=== PATIENT | female | born 1970 ===

== ENCOUNTER 2017-01-18 12:59 | Emergency (ER) | payer MEDICARE, OTHER ==
[2017-01-18 13:00] VITALS: BMI 29.0
[2017-01-18 13:13] VITALS: RESP 18; O2SAT 98
[2017-01-18] MEDS ORDERED: Sodium Chloride 0.9% 1,000 ML IV STA (13:34)
[2017-01-18 14:05] LABS: BASO # 0.1 K/uL (0.0-0.2); BASO % 1.1 % (0.0-2.0); EOS # 0.1 K/uL (0.0-0.7); EOS % 0.9 % (0.0-4.0); LYMPH # 1.6 K/uL (1.0-4.3); MEAN CELL VOLUME 82.9 fL (81.0-99.0); MEAN CORPUSCULAR HEMOGLOBIN 26.3 pg (27.0-31.0); MEAN CORPUSCULAR HGB CONC 31.7 g/dL (33.0-37.0); MEAN PLATELET VOLUME 9.2 fL (7.2-11.7); MONO # 0.7 K/uL (0.0-0.8); MONO % 9.6 % (0.0-10.0); NRBC % 0.2 % (0.0-2.0); RED CELL DISTRIBUTION WIDTH 16.5 % (11.5-14.5); WHITE BLOOD COUNT 6.9 K/uL (4.8-10.8)
[2017-01-18] MEDS ORDERED: Sodium Chloride 0.9% 1,000 ML ONE (14:07)
[2017-01-18 14:13] LABS: CHLORIDE 99 mmol/L (98-107)
[2017-01-18 14:14] LABS: POTASSIUM 3.7 mmol/L (3.6-5.2); SODIUM 138 mmol/L (132-148)
[2017-01-18 14:16] LABS: ALB/GLOB RATIO 1.4 (1.0-2.1); ALKALINE PHOSPHATASE 50 U/L (38-126); AST/SGOT 26 U/L (14-36); BILIRUBIN,TOTAL 0.1 mg/dL (0.2-1.3); BLOOD UREA NITROGEN 14 mg/dL (7-17); CARBON DIOXIDE 25 mmol/L (22-30); GFR AFRICAN-AMERICAN > 60
[2017-01-18 14:17] LABS: ALT/SGPT 29 U/L (9-52); CALCIUM 8.9 mg/dl (8.6-10.4); GLUCOSE,RANDOM 95 mg/dL (65-105)
--- NOTE | 2017-01-18 14:34 | C.PDOC ---
History Of Present Illness 46-year-old female, PMHx includes Rheumatoid Arthritis and Lupus, presents to the emergency department with complaints of light headedness for the past month. Patient notes that she has been on her menstrual cycle for the past month. States she changes her pad 2-3 times a day, and sees clots; Patient notes she has not been evaluated by OBGYN. Denies loss of consciousness, shortness of breath or chest pain. Patient reports she has also been having fluid retention for the four past months, for which she is taking HCTZ. States she feels generally well otherwise. No other complaints at this time. Time Seen by Provider: 01/18/17 13:27 Chief Complaint (Nursing): Dizziness/Lightheaded History Per: Patient History/Exam Limitations: no limitations Onset/Duration Of Symptoms: Days Current Symptoms Are (Timing): Still Present Past Medical History Reviewed: Historical Data, Nursing Documentation, Vital Signs Vital Signs: Last Vital Signs Temp 98.6 F 01/18/17 13:12 Pulse 80 01/18/17 13:12 Resp 18 01/18/17 13:12 BP 115/78 01/18/17 13:12 Pulse Ox 98 01/18/17 14:55 - Medical History PMH: Anemia, Anxiety, Arthritis, Asthma, Back Problems, Bipolar Disorder, Depression, Gastritis, Hiatal Hernia, Rheumatoid Arthritis Surgical History: Endoscopy - [facility] Procedures ESOPHAGOGASTRODUODENOSCOPY [EGD] W/CLOSED BIOPSY (05/29/15) Family History: States: Unknown Family Hx - Social History Hx Tobacco Use: Yes Hx Alcohol Use: No Hx Substance Use: No - Immunization History Hx Tetanus Toxoid Vaccination: No Hx Influenza Vaccination: No Hx Pneumococcal Vaccination: No Review Of Systems Except As Marked, All Systems Reviewed And Found Negative. Constitutional: Negative for: Fever, Chills Respiratory: Negative for: Cough, Shortness of Breath Gastrointestinal: Negative for: Nausea, Vomiting Genitourinary: Positive for: Vaginal Bleeding Musculoskeletal: Negative for: Back Pain Neurological: Negative for: Weakness, Numbness, Headache, Dizziness Physical Exam - Physical Exam Additional Physical Exam Comments: Constitutional: No acute distress. Head: Normocephalic. Atraumatic. Eyes: PERRL. EOMI ENT: Moist mucous membranes. Neck: Supple. Cardiovascular: Regular rate. Radial pulses 2+ bilaterally. Chest: No tenderness. Respiratory: Clear to auscultation bilaterally. GI: Soft. Nontender. Nondistended. Back: No CVA tenderness. No midline tenderness. Musculoskeletal: No tenderness or swelling of extremities. Skin: No rash. Neurologic: Alert, no focal deficit. ED Course And Treatment - Laboratory Results Result Diagrams: 01/18/17 14:02 01/18/17 14:02 ECG: Interpreted By Me, Viewed By Me ECG Rhythm: Sinus Rhythm ECG Interpretation: No Acute Changes Rate From EC O2 Sat by Pulse Oximetry: 98 - Radiology CXR: Interpreted by Me, Viewed By Me CXR Interpretation: Yes: No Acute Disease Medical Decision Making Medical Decision Making: Prior Visits Notes and records from previous visits were reviewed. Patient has a Hx of similar presentation w/ same complaint. At the time, patients urine noted to have blood; Patient may be on her menstrual cycle since last visit. Will check patients HGB. Patients blood pressure and heart rate are currently normal. Plan: * Type and Screen * EKG * CMP, Lipase * CBC, PTT, PT * Chest X-Ray * Zofran, IVF * Influenza AB * UA/HCG * Reassess and Disposition Labs unremarkable. Hb stable after a reported month of vaginal bleeding. Will discharge patient, copy of labs provided for follow up with PMD and OBGYN. Return to ER for near syncope, dyspnea, vomiting, or any other problem. Disposition - Disposition Referrals: Shaik Andrade MD [Staff Provider] - Disposition: HOME/ ROUTINE Disposition Time: 14:55 Condition: STABLE Additional Instructions: Follow up with your primary care physician and an OBGYN. Instructions: Dysfunctional Uterine Bleeding (ED) Forms: Work Excuse - Clinical Impression Clinical Impression: Lightheadedness, Dysfunctional uterine bleeding - Scribe Statement The provider has reviewed the documentation as recorded by the Waldoibzachariah Farr All medical record entries made by the Waldoibzachariah were at my direction and personally dictated by me. I have reviewed the chart and agree that the record accurately reflects my personal performance of the history, physical exam, medical decision making, and the department course for this patient. I have also personally directed, reviewed, and agree with the discharge instructions and disposition.
[2017-01-18 14:35] LABS: RBC URINE < 1 /hpf (0-3); URINE BILIRUBIN NEGATIVE (NEGATIVE); URINE BLOOD NEGATIVE (NEGATIVE); URINE COLOR Straw (YELLOW); URINE GLUCOSE (UA) NORMAL (Normal); URINE KETONE NEGATIVE (NEGATIVE); URINE LEUKOCYTE ESTERASE NEG Leu/uL (Negative); URINE PROTEIN NEGATIVE (NEGATIVE); URINE UROBILINOGEN NORMAL mg/dL (0.2-1.0)
--- NOTE | 2017-01-18 14:37 | RAD ---
HISTORY: lightheaded COMPARISON: Comparison is made to the previous study dated 10/22/2016 FINDINGS: LUNGS: No active pulmonary disease. PLEURA: No significant pleural effusion identified, no pneumothorax apparent. CARDIOVASCULAR: Normal. OSSEOUS STRUCTURES: No significant abnormalities. VISUALIZED UPPER ABDOMEN: Normal. OTHER FINDINGS: None. IMPRESSION: No active disease.
[2017-01-18 14:56] VITALS: BP 130/88; PULSE 75
[2017-01-18 15:18] VITALS: TEMP 97.8
--- NOTE | 2017-01-19 23:10 | CARD ---
APPROVED REPORT EKG Measurement Heart [id number] <Conclusion> Normal sinus rhythm Normal ECG
== END 2017-01-18 15:19 | disposition home or self-care (01) ==
LOC: C.ER 12:59
DX: N93.8 Other specified abnormal uterine and vaginal bleeding (principal); R42 Dizziness and giddiness
CPT/HCPCS: 71010; 80053; 81001; 83690; 84703; 85025; 85610; 85730; 86850; 86900; 87804; 93005; 96361; 96374; 99285; J2405; J7040

== ENCOUNTER 2017-03-03 11:59 | Emergency (ER) | payer MEDICARE, OTHER ==
[2017-03-03 12:01] VITALS: BMI 29.0
[2017-03-03 12:10] VITALS: TEMP 98.7; O2SAT 100
[2017-03-03] MEDS ORDERED: Sodium Chloride 0.9% 1,000 ML IV ONE (12:36)
[2017-03-03] MEDS ORDERED: Sodium Chloride 0.9% 1,000 ML ONE (13:02)
--- NOTE | 2017-03-03 13:15 | C.PDOC ---
History Of Present Illness 46 y/o female, with PMHx of lupus and anemia, presents to ED with complaints of generalized weakness, feeling tired, and decreased appetite for 2 days. Patient states she is also saddened by recent news provided by her doctor regarding the condition of her liver. Patient is unsure of the diagnosis but was advised to follow up with GI. Patient also complains of associated nausea but denies vomiting. Otherwise, denies fever, chills, abdominal pain, diarrhea, urinary symptoms, or other complaints. Time Seen by Provider: 03/03/17 12:27 Chief Complaint (Nursing): Dizziness/Lightheaded History Per: Patient History/Exam Limitations: no limitations Onset/Duration Of Symptoms: Days Current Symptoms Are (Timing): Still Present Reports Recently: Treated By A Physician Recent travel outside of the [place]: No Past Medical History Reviewed: Historical Data, Nursing Documentation, Vital Signs Vital Signs: Last Vital Signs Temp 98.7 F 03/03/17 12:07 Pulse 68 03/03/17 14:04 Resp 18 03/03/17 14:04 BP 117/73 03/03/17 14:04 Pulse Ox 100 03/03/17 14:04 - Medical History PMH: Anemia, Anxiety, Arthritis, Asthma, Back Problems, Bipolar Disorder, Depression, Gastritis, Hiatal Hernia, Rheumatoid Arthritis Surgical History: Endoscopy - [facility] Procedures ESOPHAGOGASTRODUODENOSCOPY [EGD] W/CLOSED BIOPSY (05/29/15) Family History: States: Unknown Family Hx - Social History Hx Tobacco Use: Yes Hx Alcohol Use: No Hx Substance Use: No - Immunization History Hx Tetanus Toxoid Vaccination: No Hx Influenza Vaccination: No Hx Pneumococcal Vaccination: No Review Of Systems Except As Marked, All Systems Reviewed And Found Negative. Constitutional: Negative for: Fever, Chills ENT: Negative for: Throat Pain Cardiovascular: Negative for: Chest Pain Respiratory: Negative for: Cough, Shortness of Breath, Wheezing Gastrointestinal: Positive for: Nausea. Negative for: Vomiting, Abdominal Pain , Diarrhea Skin: Negative for: Rash Neurological: Negative for: Dizziness Physical Exam - Physical Exam Appears: Non-toxic, Other (tearful, anxious) Skin: Warm, Dry Head: Atraumatic, Normacephalic Oral Mucosa: Moist Throat: Normal, No Erythema, No Exudate Neck: Supple Chest: Symmetrical Cardiovascular: Rhythm Regular, No Murmur Respiratory: Normal Breath Sounds, No Rales, No Rhonchi, No Wheezing Gastrointestinal/Abdominal: Soft, No Tenderness, No Guarding, No Rebound Back: Normal Inspection Extremity: Normal ROM, No Pedal Edema, Capillary Refill (< 2 sec. ) Extremity: Bilateral: Normal Color And Temperature Neurological/Psych: Oriented x3, Normal Speech, Normal Cognition ED Course And Treatment - Laboratory Results Result Diagrams: 03/03/17 13:05 03/03/17 13:05 Lab Interpretation: No Acute Changes O2 Sat by Pulse Oximetry: 100 (RA) Pulse Ox Interpretation: Normal Medical Decision Making Medical Decision Making: Plan: * EKG * Labs * IVFs, Zofran * Reassess Progress: Labs reviewed. H/H WNL, no leukocytosis Patient observed to be talking on phone in no acute distress Upon reevaluation patient resting comfortably and reports feeling better. Explain lab results and LFT WNL and state normal Hgb. Advise patient to follow up with PMD for further evaluation. Recommend fluids and rest Disposition Counseled Patient/Family Regarding: Diagnosis, Need For Followup - Disposition Referrals: Shaik Andrade MD [Staff Provider] - Ras Krishnamurthy MD [Staff Provider] - Disposition: HOME/ ROUTINE Disposition Time: 13:48 Condition: STABLE Additional Instructions: [facility] normales Por favor, siga con el primario y reumatlogo Usted puede llamar al servicio de conserjera para cualquier ayuda [phone]. 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 - Scribe Statement The provider has reviewed the documentation as recorded by the Jocelyn Patterson Provider Scribe Attestation: All medical record entries made by the Waldoibzachariah were at my direction and personally dictated by me. I have reviewed the chart and agree that the record accurately reflects my personal performance of the history, physical exam, medical decision making, and the department course for this patient. I have also personally directed, reviewed, and agree with the discharge instructions and disposition.
[2017-03-03 13:17] LABS: BASO # 0.1 K/uL (0.0-0.2); BASO % 0.7 % (0.0-2.0); EOS # 0.1 K/uL (0.0-0.7); EOS % 0.8 % (0.0-4.0); HEMATOCRIT 37.1 % (34.0-47.0); LYMPH # 1.5 K/uL (1.0-4.3); LYMPH % 20.2 % (20.0-40.0); MEAN CELL VOLUME 82.8 fL (81.0-99.0); MEAN CORPUSCULAR HEMOGLOBIN 26.6 pg (27.0-31.0); MEAN CORPUSCULAR HGB CONC 32.1 g/dL (33.0-37.0); MEAN PLATELET VOLUME 9.2 fL (7.2-11.7); MONO # 0.5 K/uL (0.0-0.8); MONO % 7.6 % (0.0-10.0); RED CELL DISTRIBUTION WIDTH 16.1 % (11.5-14.5); WHITE BLOOD COUNT 7.2 K/uL (4.8-10.8)
[2017-03-03 13:21] LABS: RBC URINE 142 /hpf (0-3); URINE BILIRUBIN NEGATIVE (NEGATIVE); URINE BLOOD 3+ (NEGATIVE); URINE COLOR Yellow (YELLOW); URINE GLUCOSE (UA) NORMAL (Normal); URINE KETONE 1+ mg/dL (NEGATIVE); URINE LEUKOCYTE ESTERASE TRACE Leu/uL (Negative); URINE PROTEIN 1+ mg/dL (NEGATIVE); URINE UROBILINOGEN NORMAL mg/dL (0.2-1.0); WBC URINE 22 /hpf (0-5)
[2017-03-03 13:30] LABS: CHLORIDE 101 mmol/L (98-107)
[2017-03-03 13:31] LABS: POTASSIUM 3.6 mmol/L (3.6-5.2); SODIUM 137 mmol/L (132-148)
[2017-03-03 13:33] LABS: ALB/GLOB RATIO 1.8 (1.0-2.1); AST/SGOT 24 U/L (14-36); BILIRUBIN,TOTAL 0.5 mg/dL (0.2-1.3); BLOOD UREA NITROGEN 13 mg/dL (7-17); CARBON DIOXIDE 24 mmol/L (22-30); GFR AFRICAN-AMERICAN > 60; TOTAL PROTEIN 7.5 g/dL (6.3-8.3)
[2017-03-03 13:34] LABS: ALKALINE PHOSPHATASE 55 U/L (38-126); ALT/SGPT 27 U/L (9-52); CALCIUM 9.1 mg/dl (8.6-10.4); GLUCOSE,RANDOM 97 mg/dL (65-105)
[2017-03-03 14:05] VITALS: BP 117/73; PULSE 68; RESP 18
== END 2017-03-03 14:19 | disposition home or self-care (01) ==
LOC: C.ER 11:59
DX: F41.9 Anxiety disorder, unspecified (principal); R53.83 Other fatigue

== ENCOUNTER 2017-04-12 13:47 | Emergency (ER) | payer MEDICARE, OTHER ==
[2017-04-12 13:47] VITALS: BMI 29.0
[2017-04-12 13:54] VITALS: BP 124/78; PULSE 78; RESP 18; TEMP 98.4; O2SAT 98
--- NOTE | 2017-04-12 14:40 | C.PDOC ---
History Of Present Illness 46y/o female presents to the ED for evaluation of vaginal burning and itching associated with foul-smelling discharge since last night. Patient notes she recently completed a course of antibiotics. She denies fever, chills, and rash. VAGINAL BURNING, ITCH, FOUL DC SINCE LAST NIGHT. PS RECENTLY FINISHED ABX. NO RASH, FEVER. EXAM NAD EXT GENITALIA NEG. +VAG CANDIDIASIS REMAINDER NEG Time Seen by Provider: 04/12/17 13:57 Chief Complaint (Nursing): Female Genitourinary History Per: Patient History/Exam Limitations: no limitations Onset/Duration Of Symptoms: Hrs Current Symptoms Are (Timing): Still Present Additional History Per: Patient Abnormal Vaginal Bleeding: No Past Medical History Reviewed: Historical Data, Nursing Documentation, Vital Signs Vital Signs: Last Vital Signs Temp 98.4 F 04/12/17 13:51 Pulse 78 04/12/17 13:51 Resp 18 04/12/17 13:51 BP 124/78 04/12/17 13:51 Pulse Ox 98 04/12/17 16:54 - Medical History PMH: Anemia, Anxiety, Arthritis, Asthma, Back Problems, Bipolar Disorder, Depression, Gastritis, Hiatal Hernia, Rheumatoid Arthritis Surgical History: Endoscopy - [facility] Procedures ESOPHAGOGASTRODUODENOSCOPY [EGD] W/CLOSED BIOPSY (05/29/15) Family History: States: Unknown Family Hx - Social History Hx Tobacco Use: Yes Hx Alcohol Use: No Hx Substance Use: No - Immunization History Hx Tetanus Toxoid Vaccination: No Hx Influenza Vaccination: No Hx Pneumococcal Vaccination: No Review Of Systems Except As Marked, All Systems Reviewed And Found Negative. Constitutional: Negative for: Fever, Chills Genitourinary: Positive for: Vaginal Discharge (foul-smelling), Other (vaginal itching and burning ) Skin: Negative for: Rash Physical Exam - Physical Exam Appears: Non-toxic, No Acute Distress Skin: Normal Color, Warm, Dry Eye(s): bilateral: Normal Inspection Oral Mucosa: Moist Neck: Supple Gastrointestinal/Abdominal: Soft, No Tenderness, No Guarding, No Rebound Pelvic: Normal External Exam, Other (+vaginal candidiasis ) Extremity: Normal ROM Neurological/Psych: Normal Speech, Normal Cognition Gait: Steady ED Course And Treatment - Laboratory Results Urine POC: Negative O2 Sat by Pulse Oximetry: 98 (on RA) Pulse Ox Interpretation: Normal Progress Note: UA ordered and reviewed. Disposition Counseled Patient/Family Regarding: Studies Performed, Diagnosis, Need For Followup, Rx Given - Disposition Referrals: YOUR,OBGYN [Other] Disposition: HOME/ ROUTINE Disposition Time: 14:41 Condition: GOOD Prescriptions: Clotrimazole 1% Cream [Lotrimin 1%] 1 applic EXT DAILY #7 tube metroNIDAZOLE [Flagyl] 500 mg PO BID #14 tab Instructions: Vaginitis (ED) - Clinical Impression Clinical Impression: Vaginitis - Scribe Statement The provider has reviewed the documentation as recorded by the Scribe (Jackelin Lizama) Provider Attestation: All medical record entries made by the Scribe were at my direction and personally dictated by me. I have reviewed the chart and agree that the record accurately reflects my personal performance of the history, physical exam, medical decision making, and the department course for this patient. I have also personally directed, reviewed, and agree with the discharge instructions and disposition.
[2017-04-12 14:47] LABS: RBC URINE 3 /hpf (0-3); URINE BACTERIA RARE (<OCC); URINE BILIRUBIN NEGATIVE (NEGATIVE); URINE BLOOD NEGATIVE (NEGATIVE); URINE GLUCOSE (UA) NORMAL (Normal); URINE KETONE 1+ mg/dL (NEGATIVE); URINE LEUKOCYTE ESTERASE NEG Leu/uL (Negative); URINE PROTEIN 1+ mg/dL (NEGATIVE); URINE UROBILINOGEN NORMAL mg/dL (0.2-1.0); WBC URINE 1 /hpf (0-5)
[2017-04-12 14:51] LABS: URINE COLOR YELLOW (YELLOW)
== END 2017-04-12 15:09 | disposition home or self-care (01) ==
LOC: C.ER 13:47
DX: N76.0 Acute vaginitis (principal)

== ENCOUNTER 2017-04-16 17:44 | Emergency (ER) | payer MEDICARE, OTHER ==
[2017-04-16 18:24] VITALS: BMI 28.3
[2017-04-16 18:28] VITALS: RESP 18
[2017-04-16] MEDS: Bacitracin 500 Units/gm Oint Foilpak UD TOP STA (18:29)
[2017-04-16] MEDS ORDERED: Bacitracin 500 Units/gm Oint Foilpak UD ONE (18:30)
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
[2017-04-16 19:41] VITALS: BP 112/72; PULSE 68; TEMP 97.9; O2SAT 100
--- NOTE | 2017-04-17 13:23 | RAD ---
Right elbow three views History: Injury. Comparison: None available. Findings: No evidence of acute displaced fracture or dislocation. No significant elbow joint effusion. Impression: Negative acute. If pain persists, consider MRI.
--- NOTE | 2017-04-17 13:26 | RAD ---
Right ankle three views History: Injury. Comparison: None available. Findings: Mild lateral malleolar soft tissue swelling. No evidence for acute displaced fracture or dislocation. Mild bony spurring at the medial malleolus of the distal tibia. Ankle mortise maintained. Talar dome intact. Mild dorsal calcaneal spurring. Small rounded ossific density seen anterior to the anterior cortex of the distal tibia, nonspecific. Impression: Posttraumatic and degenerative changes. If pain persists, consider MRI.
--- NOTE | 2017-04-17 13:34 | RAD ---
Left ankle three views History: Fall. Comparison: None available. Findings: Mild lateral malleolar soft tissue swelling. No evidence of acute displaced fracture or dislocation. Mild narrowing of the tibiotalar joint space. Impression: Mild lateral malleolar soft tissue swelling. Negative acute. If pain persists, consider MRI.
== END 2017-04-16 19:20 | disposition home or self-care (01) ==
LOC: C.ER 17:44
DX: M25.521 Pain in right elbow (principal); M25.571 Pain in right ankle and joints of right foot; S50.311A Abrasion of right elbow, initial encounter; S70.211A Abrasion, right hip, initial encounter; V19.3XXA Pedal cyclist (driver) (passenger) injured in unspecified nontraffic accident, initial encounter; Y93.55 Activity, bike riding; Y92.830 Public park as the place of occurrence of the external cause

== ENCOUNTER 2017-08-13 09:38 | Emergency (ER) | payer MEDICARE, OTHER ==
[2017-08-13 09:39] VITALS: BMI 28.3
[2017-08-13 10:09] VITALS: RESP 18; O2SAT 100
[2017-08-13 10:55] VITALS: BP 137/79; PULSE 60; TEMP 97.4
--- NOTE | 2017-08-13 10:57 | C.PDOC ---
History Of Present Illness 46 year old female, whose PMHx includes Arthritis, Depression and Lupus, presents to the ED for evaluation of pain and swelling to her right knee which began around 2 weeks ago. Patient notes her knee becomes "locked" at times and becomes very swollen when she is not taking her water pills. Patient denies fever, chills, or direct trauma/injury to the affected area. Time Seen by Provider: 08/13/17 09:47 Chief Complaint (Nursing): Lower Extremity Problem/Injury History Per: Patient History/Exam Limitations: no limitations Onset/Duration Of Symptoms: Other (2 weeks) Current Symptoms Are (Timing): Still Present Additional History Per: Patient - Knee Description Of Injury: denies: Fell, Struck With Object, Struck Against Object, Twisted Past Medical History Reviewed: Historical Data, Nursing Documentation, Vital Signs Vital Signs: Last Vital Signs Temp 97.4 F L 08/13/17 10:50 Pulse 60 08/13/17 10:50 Resp 18 08/13/17 10:50 BP 137/79 08/13/17 10:50 Pulse Ox 100 08/13/17 12:34 - Medical History PMH: Anemia, Anxiety, Arthritis, Asthma, Back Problems, Bipolar Disorder, Depression, Gastritis, Hiatal Hernia, Rheumatoid Arthritis Surgical History: Endoscopy - [facility] Procedures ESOPHAGOGASTRODUODENOSCOPY [EGD] W/CLOSED BIOPSY (05/29/15) Family History: States: Unknown Family Hx - Social History Hx Tobacco Use: Yes Hx Alcohol Use: No Hx Substance Use: No (Past use of marijuana) - Immunization History Hx Tetanus Toxoid Vaccination: No Hx Influenza Vaccination: No Hx Pneumococcal Vaccination: No Review Of Systems Constitutional: Negative for: Fever, Chills Musculoskeletal: Positive for: Other (right knee pain and swelling ) Physical Exam - Physical Exam Appears: Non-toxic, No Acute Distress Skin: Normal Color, Warm, Dry, No Other (erythema or warmth to right knee ) Eye(s): bilateral: Normal Inspection Oral Mucosa: Moist Extremity: Normal ROM, Tenderness (to right knee on palpation), Capillary Refill (less than 2 seconds ), No Deformity, Swelling (right knee ), Other ( brace present on right wrist ) Neurological/Psych: Oriented x3, Normal Speech, Normal Cognition Gait: Steady ED Course And Treatment O2 Sat by Pulse Oximetry: 100 (on RA) Pulse Ox Interpretation: Normal Medical Decision Making Medical Decision Making: Progress: Motrin PO administered. Case discussed with Dr. Krishnamurthy, who recommends to advise patient to follow up with him in office for further evaluation. Advises to give patient steroid treatment in the ED. Prednisone PO administered. On reassessment, patient is resting comfortably, showing no signs of distress and is showing no signs of distress. Patient is ambulatory in the ED and stable for discharge. Patient is advised to follow up with Dr. Krishnamurthy within 1-2 days for further evaluation and/or return to the ED if symptoms worsen. Disposition Discussed With Dr.: Ras Krishnamurthy Doctor Will See Patient In The: Office Counseled Patient/Family Regarding: Diagnosis, Need For Followup, Rx Given - Disposition Referrals: Ras Krishnamurthy MD [Staff Provider] - Disposition: HOME/ ROUTINE Disposition Time: 10:55 Condition: STABLE Prescriptions: Ibuprofen [Motrin] 600 mg PO TID #15 tab Prednisone [Deltasone] 40 mg PO DAILY #6 tablet Instructions: Osteoarthritis (ED) Forms: [facility] (Eth[place]ian), General Discharge Instructions - POA Present On Arrival: None - Clinical Impression Clinical Impression: Joint swelling - Scribe Statement The provider has reviewed the documentation as recorded by the Scribe (Jackelin Lizama) Provider Attestation: All medical record entries made by the Scribe were at my direction and personally dictated by me. I have reviewed the chart and agree that the record accurately reflects my personal performance of the history, physical exam, medical decision making, and the department course for this patient. I have also personally directed, reviewed, and agree with the discharge instructions and disposition.
== END 2017-08-13 11:00 | disposition home or self-care (01) ==
LOC: C.ER 09:38
DX: M25.461 Effusion, right knee (principal)

== ENCOUNTER 2018-02-22 09:07 | Emergency (ER) | payer MEDICAID, MEDICARE, OTHER ==
[2018-02-22 09:07] VITALS: BMI 29.2
[2018-02-22 09:34] VITALS: BP 120/83; PULSE 60; TEMP 98.3; O2SAT 99
--- NOTE | 2018-02-22 10:30 | C.PDOC ---
History Of Present Illness 47y /o female presents to the ER complaining of chronic right knee pain which has become worse over the past few days. Patient states that she is not taking any medications for the pain. Denies having weakness, numbness, and other complaints.Of note, patient has an extensive history of CAT scans of Abd & Pelv. Time Seen by Provider: 02/22/18 10:25 Chief Complaint (Nursing): Lower Extremity Problem/Injury History Per: Patient History/Exam Limitations: no limitations Onset/Duration Of Symptoms: Days Current Symptoms Are (Timing): Still Present Severity: Moderate Past Medical History Reviewed: Historical Data, Nursing Documentation, Vital Signs Vital Signs: Last Vital Signs Temp 98.3 F 02/22/18 09:27 Pulse 60 02/22/18 09:27 Resp 18 02/22/18 10:48 BP 120/83 02/22/18 09:27 Pulse Ox 99 02/22/18 10:30 - Medical History PMH: Anemia, Anxiety, Arthritis, Asthma, Back Problems, Bipolar Disorder, Depression, Gastritis, Hiatal Hernia, Rheumatoid Arthritis Surgical History: Endoscopy - [facility] Procedures ESOPHAGOGASTRODUODENOSCOPY [EGD] W/CLOSED BIOPSY (05/29/15) Family History: States: No Known Family Hx - Social History Hx Tobacco Use: Yes Hx Alcohol Use: No Hx Substance Use: No (Past use of marijuana) - Immunization History Hx Tetanus Toxoid Vaccination: No Hx Influenza Vaccination: No Hx Pneumococcal Vaccination: No Review Of Systems Except As Marked, All Systems Reviewed And Found Negative. Constitutional: Negative for: Fever, Chills Musculoskeletal: Positive for: Leg Pain Neurological: Negative for: Weakness, Numbness Physical Exam - Physical Exam Appears: Other (bizarre affect, consistent with bipolar disorder) Skin: Normal Color, Warm, Dry Head: Atraumatic, Normacephalic Eye(s): bilateral: Normal Inspection Nose: Normal Oral Mucosa: Moist Neck: Supple Chest: Symmetrical Extremity: Normal ROM, Other (? small effusion to bilateral knees) Neurological/Psych: Oriented x3, Normal Speech ED Course And Treatment O2 Sat by Pulse Oximetry: 99 (RA) Pulse Ox Interpretation: Normal Medical Decision Making Medical Decision Making: chronic R knee pain no injury normal exam bipolar magnifys symptoms? ice/NSAIDS and f/u as opt Disposition Doctor Will See Patient In The: Office Counseled Patient/Family Regarding: Studies Performed, Diagnosis - Disposition Referrals: Ras Krishnamurthy MD [Staff Provider] - Disposition: HOME/ ROUTINE Disposition Time: 10:30 Condition: GOOD Additional Instructions: sigue iburprofeno 400-600 mg cada 6 horas jairo necessario bolsa de hielo encima 1/2 hora por hora nada caliente Sigue con Dr. Krishnamurthy jairo necessario. Instructions: Knee Pain (DC) Forms: [employer] (Faroese) Print Language: MALTESE - Clinical Impression Clinical Impression: Arthritis of knee - Scribe Statement The provider has reviewed the documentation as recorded by the Waldoibe Timbo Ordoñez Provider Attestation: All medical record entries made by the Scribe were at my direction and personally dictated by me. I have reviewed the chart and agree that the record accurately reflects my personal performance of the history, physical exam, medical decision making, and the department course for this patient. I have also personally directed, reviewed, and agree with the discharge instructions and disposition.
[2018-02-22 10:50] VITALS: RESP 18
== END 2018-02-22 10:50 | disposition home or self-care (01) ==
LOC: C.ER 09:07
DX: M17.9 Osteoarthritis of knee, unspecified (principal); M06.9 Rheumatoid arthritis, unspecified; Z72.0 Tobacco use

== ENCOUNTER 2018-03-04 08:01 | Emergency (ER) | payer MEDICARE, OTHER ==
[2018-03-04 08:01] VITALS: BMI 29.2
[2018-03-04] MEDS ORDERED: Sodium Chloride 0.9% 1,000 ML IV ONE (08:46)
[2018-03-04] MEDS ORDERED: DiphenhydrAMINE 50 mg/ml Inj IVP STA (08:47)
[2018-03-04] MEDS ORDERED: DiphenhydrAMINE 50 mg/ml Inj ONE (08:59)
--- NOTE | 2018-03-04 08:59 | C.PDOC ---
History Of Present Illness 47 y/o female w/PMhx of bipolar, brought to ED by EMS for evaluation of right flank pain developed earlier today, "while I was standing making sandwiches in morning for my kid". Patient reports pain is localized, reproducible and worse with movement. Patient denies fever, chills, recent illness, sore throat, chest pain, SOB, dyspnea, palpitation, abdominal pain, V/D, dysuria, hematuria, vaginal bleeding or irritation. At the time of evaluation, pt appears in pain, crying loud. Time Seen by Provider: 03/04/18 08:26 Chief Complaint (Nursing): Back Pain History Per: Patient History/Exam Limitations: no limitations Onset/Duration Of Symptoms: Hrs Current Symptoms Are (Timing): Still Present Past Medical History Reviewed: Historical Data, Nursing Documentation, Vital Signs Vital Signs: Last Vital Signs Temp 98.0 F 03/04/18 10:03 Pulse 62 03/04/18 10:03 Resp 18 03/04/18 10:03 BP 102/70 03/04/18 10:03 Pulse Ox 98 03/04/18 10:22 - Medical History PMH: Anemia, Anxiety, Arthritis, Asthma, Back Problems, Bipolar Disorder, Depression, Gastritis, Hiatal Hernia, Rheumatoid Arthritis Surgical History: Endoscopy - [facility] Procedures ESOPHAGOGASTRODUODENOSCOPY [EGD] W/CLOSED BIOPSY (05/29/15) Family History: States: No Known Family Hx - Social History Hx Tobacco Use: Yes Hx Alcohol Use: No Hx Substance Use: No (Past use of marijuana) - Immunization History Hx Tetanus Toxoid Vaccination: No Hx Influenza Vaccination: No Hx Pneumococcal Vaccination: No Review Of Systems Constitutional: Negative for: Fever, Chills Cardiovascular: Negative for: Chest Pain Gastrointestinal: Positive for: Other (flank pain). Negative for: Nausea, Vomiting, Abdominal Pain Genitourinary: Negative for: Dysuria, Hematuria, Vaginal Bleeding Musculoskeletal: Negative for: Back Pain Skin: Negative for: Rash Physical Exam - Physical Exam Appears: Well, Non-toxic, Other (in pain) Skin: Normal Color, Warm, Dry, No Rash Head: Normacephalic Eye(s): bilateral: PERRL Nose: No Flaring Oral Mucosa: Moist, No Drooling Tongue: Normal Appearing Lips: Normal Appearing Throat: No Erythema, No Drooling Neck: Trachea Midline, Supple Cardiovascular: Rhythm Regular, No Murmur, No JVD Respiratory: No Decreased Breath Sounds, No Rales, No Rhonchi, No Stridor, No Wheezing Gastrointestinal/Abdominal: Soft, No Tenderness, No Distention, No Guarding, No Rebound Back: No CVA Tenderness, No Muscle Spasm, Other (Right flank tenderness) Extremity: Normal ROM, Capillary Refill (<2 seconds) Neurological/Psych: Oriented x3, Normal Speech, Normal Cognition, Normal Motor, Normal Sensation, Normal Reflexes ED Course And Treatment - Laboratory Results Result Diagrams: 03/04/18 08:57 03/04/18 08:57 Lab Interpretation: Normal Urine POC: Negative ECG: Interpreted By Me, Viewed By Me ECG Rhythm: Sinus Rhythm ECG Interpretation: Normal Interpretation Of ECG: SR@75/min, NAD, no acute T wave or ST-T changes. O2 Sat by Pulse Oximetry: 98 (RA) Pulse Ox Interpretation: Normal - Radiology CXR: Interpreted by Me, Viewed By Me, Read By Radiologist CXR Interpretation: Yes: No Acute Disease Progress Note: Pt was OBS in ED for 3 hours and appears improved, resting comforatbly now, not in pain or any other acute distress. On re-evaluation, pt is afebrile, hemodynamiclay stable. Non-toxic,ambulatory in ED with stable gait. PulsEOx 98%RA . ENT: no acute findings. Uvual midline, no edema. neck: Supple, (-) JVD. Lungs: CTA B/L, BS equal B/L. Abd: benign, (-) guarding, (-) rebound. back: (-) CVA tenderness. neurologicaly intact. CXR, EKG review- normal study. Blood work, no acute leukocytosis, normal. UA (+) WBC, RBC. preg (-). Pt has clinical findings c/w Left flank pain, UTI. Pt advised. ref. to F/u with PMD in 2-3 days for re-eavl. return to Ed if any worsening or new changes. Disposition Counseled Patient/Family Regarding: Studies Performed, Diagnosis, Need For Followup, Rx Given - Disposition Referrals: Shaik Andrade MD [Staff Provider] - Disposition: HOME/ ROUTINE Disposition Time: 10:05 Condition: STABLE Additional Instructions: Encourage fluids Take medication as prescribed Follow up with PMD in 2-3 days for re-evaluation. return TO ED if any worsening or new changes. Prescriptions: Cefdinir [Omnicef] 300 mg PO BID #14 cap Cranberry 500 mg PO DAILY #20 capsule Ibuprofen [Motrin Tab] 600 mg PO BID #20 tab Instructions: Flank Pain, Urinary Tract Infection, Adult (DC) Forms: [employer] (Macanese) - Clinical Impression Clinical Impression: UTI (lower urinary tract infection), Flank pain - PA / BELT MEASURER / Resident Statement MD/DO has reviewed & agrees with the documentation as recorded. - Scribe Statement The provider has reviewed the documentation as recorded by the Scribzachariah Wall All medical record entries made by the Jocelyn were at my direction and personally dictated by me. I have reviewed the chart and agree that the record accurately reflects my personal performance of the history, physical exam, medical decision making, and the department course for this patient. I have also personally directed, reviewed, and agree with the discharge instructions and disposition.
[2018-03-04] MEDS ORDERED: Sodium Chloride 0.9% 1,000 ML ONE (09:00)
[2018-03-04 09:06] LABS: BASO # 0.1 K/uL (0.0-0.2); EOS % 0.4 % (0.0-4.0); HEMOGLOBIN 12.6 g/dL (11.0-16.0); LYMPH # 1.2 K/uL (1.0-4.3); LYMPH % 16.1 % (20.0-40.0); MEAN CELL VOLUME 84.1 fL (81.0-99.0); MEAN CORPUSCULAR HEMOGLOBIN 28.2 pg (27.0-31.0); MEAN CORPUSCULAR HGB CONC 33.5 g/dL (33.0-37.0); MEAN PLATELET VOLUME 8.7 fL (7.2-11.7); MONO # 0.8 K/uL (0.0-0.8); MONO % 10.8 % (0.0-10.0); NEUT # 5.5 K/uL (1.8-7.0); NEUT % 71.7 % (50.0-75.0); RBC 4.46 Mil/uL (3.80-5.20); WHITE BLOOD COUNT 7.7 K/uL (4.8-10.8)
[2018-03-04 09:11] LABS: HCG,QUALITATIVE URINE NEGATIVE (NEGATIVE)
[2018-03-04 09:15] LABS: SQUAMOUS EPITHIAL 10 /hpf (0-5); URINE BACTERIA OCC (<OCC); URINE BILIRUBIN NEGATIVE (NEGATIVE); URINE BLOOD 1+ (NEGATIVE); URINE CLARITY Hazy (Clear); URINE COLOR Yellow (YELLOW); URINE GLUCOSE (UA) NORMAL (Normal); URINE PROTEIN 1+ mg/dL (NEGATIVE); URINE UROBILINOGEN NORMAL mg/dL (0.2-1.0)
[2018-03-04 09:16] LABS: URINE LEUKOCYTE ESTERASE 1+ Leu/uL (Negative)
[2018-03-04 09:16] LABS: ALB/GLOB RATIO 1.4 (1.0-2.1); ALT/SGPT 15 U/L (9-52); AST/SGOT 21 U/L (14-36); BLOOD UREA NITROGEN 14 mg/dL (7-17); CALCIUM 8.9 mg/dl (8.6-10.4); GFR AFRICAN-AMERICAN > 60; GFR NON-AFRICAN AMERICAN > 60; LIPASE 50 U/L (23-300)
[2018-03-04 09:37] LABS: BARBITURATES, UR NEGATIVE (NEGATIVE); BENZODIAZEPINES, UR NEGATIVE (NEGATIVE); OPIATES, UR NEGATIVE (NEGATIVE); PHENCYCLIDINE, UR NEGATIVE (NEGATIVE)
[2018-03-04 10:03] VITALS: RESP 18
--- NOTE | 2018-03-04 10:21 | RAD ---
HISTORY: upper back pain COMPARISON: Portable chest 01/18/2017. TECHNIQUE: Chest PA and lateral FINDINGS: LUNGS: No active pulmonary disease. PLEURA: No significant pleural effusion identified. No pneumothorax apparent. CARDIOVASCULAR: Normal. OSSEOUS STRUCTURES: No significant abnormalities. VISUALIZED UPPER ABDOMEN: Normal. OTHER FINDINGS: None. IMPRESSION: No interval acute cardiopulmonary disease appreciated.
[2018-03-04] MEDS ORDERED: Morphine 4 MG/ML VIAL ONE (10:38)
[2018-03-04] MEDS ORDERED: cefTRIAXone IV 1 gm in Dextros 50 ML IVPB ONE (10:39)
[2018-03-04 11:23] VITALS: BP 102/68; PULSE 63; TEMP 98.5; O2SAT 99
--- NOTE | 2018-03-05 12:46 | CARD ---
APPROVED REPORT EKG Measurement Heart [id number] <Conclusion> Normal sinus rhythm Normal ECG
== END 2018-03-04 12:00 | disposition home or self-care (01) ==
LOC: C.ER 08:01
DX: N39.0 Urinary tract infection, site not specified (principal); R10.9 Unspecified abdominal pain; M06.9 Rheumatoid arthritis, unspecified; Z72.0 Tobacco use
CPT/HCPCS: 71046; 80053; 81001; 83690; 84484; 84703; 85025; 87086; 93005; 96361; 96365; 96375; 99285; G0480; J0696; J1200; J1885; J2270; J2405; J7040